=== PATIENT | female | born 1975 | race African-American/Black ===

== ENCOUNTER 2017-12-31 10:39 | Emergency (ER) | payer OTHER, MEDICAID, SELFPAY ==
[2017-12-31 11:13] VITALS: BP 127/77; PULSE 53; RESP 18; TEMP 36.3; O2SAT 100; BMI 42.7
[2017-12-31] MEDS: KETOROLAC 60 MG/2 ML VIAL 15 MG IV (12:23)
[2017-12-31 12:36] LABS: Blood Urea Nitrogen 12 mg/dL (7-17); Calcium 9.6 mg/dL (8.4-10.2); Carbon Dioxide 28 mmol/L (22-32); Chloride 107 mmol/L (98-107); Estimated Glomerular Filt Rate > 60.0 mL/min (>60); Glucose 96 mg/dL (70-100); HEMOLYSIS 17 (0-50); Potassium 4.3 mmol/L (3.4-5.1); Sodium 142 mmol/L (137-145)
[2017-12-31 12:37] LABS: Add Manual Diff / Slide Review NO; Basophils Percent Auto 0.4 % (0-2); Eosinophils Percent Auto 1.3 % (2-4); Hematocrit 38.9 % (36-46); Hemoglobin 12.7 g/dL (12.0-16.0); Lymphocytes Percent Auto 16.9 % (25-40); Mean Corpuscular HGB Conc 32.7 % (30-36); Mean Corpuscular Hemoglobin 24.1 PG (26-34); Mean Corpuscular Volume 73.7 fL (80-100); Monocytes Percent Auto 7.5 % (3-14); Neutrophils Absolute Auto 4500 /uL (3000-5900); Neutrophils Percent Auto 73.9 % (50-75); Platelet Count 298 X10^3/uL (150-400); Red Blood Cell Count 5.28 X10^6/uL (4.0-5.2); Red Cell Distribution Width 18.7 % (11.6-14.8); White Blood Cell Count 6.1 X10^3/uL (4.5-11.0)
--- NOTE | 2017-12-31 13:52 | PC.NURSE ---
Iv positional for iv contrast. Had to redress iv site. radiology barely able to push contrast
--- NOTE | 2017-12-31 14:01 | DI.CT.S_ITS ---
PROCEDURE: CT SOFT TISSUE NECK W CON INDICATIONS: mid neck pain with significant difficulty swallowing - RPA? TECHNIQUE: After the administration of intravenous contrast, 3.0 mm axial sections acquired from the sella to the aortic arch. Additional oblique axial 3.0 mm sections acquired through the pharynx. 3 mm thick coronal and sagittal reformats were generated. For radiation dose reduction, the following was used: automated exposure control. COMPARISON: None. FINDINGS: Image quality: Excellent. Lymph nodes: Bilateral level II lymph nodes mildly enlarged measuring 1.1 cm short axis on the left and 1.0 cm on the right, nonspecific. Vessels: Visualized vasculature appears patent. Incidentally noted medial deviation of the carotid vasculature. Neck spaces: The oropharynx, nasopharynx, and pharynx demonstrate no mucosal lesions. The vocal cords, false vocal cords, pyriform sinuses, epiglottis, vallecula, and tongue base all appear normal. Extramucosal spaces appear unremarkable. No abscess is seen. Glands: The parotid and submandibular glands appear normal. Thyroid gland unremarkable. Miscellaneous: Visualized brain and orbits appear normal. Lung apices appear clear. Superficial soft tissues appear normal. Bones: No suspicious bony lesions. Mild fluid seen within the left maxillary sinus. IMPRESSION: No discrete abscess identified. Mildly enlarged bilateral left level II lymph nodes, nonspecific finding. Please correlate clinically. Mild left maxillary sinus disease. Dictated by: Mike Mata M.D. on 12/31/2017 at 14:22 Approved by: Mike Mata M.D. on 12/31/2017 at 14:31
[2017-12-31 14:30] VITALS: BP 126/81; PULSE 52; RESP 18; O2SAT 100
--- NOTE | 2017-12-31 15:16 | ED_ITS ---
HPI - URI/Sore Throat General Chief Complaint: Upper Respiratory Symptoms Stated Complaint: THROAT IS CLOSING Time Seen by Provider: 12/31/17 11:46 History of Present Illness HPI Narrative: HPI 42-year-old obese female with history of gastric bypass surgery presents complaining of 3 days of difficulty swallowing and mid throat pain. Patient also reports mild sinus congestion, postnasal drip, and ear pressure. Patient reports that she was seen at [facility] on 12/30, diagnosed with UTI, given 2 doses of cephalexin without an outpatient script and was informed that her sore throat required no further intervention. Patient denies fevers, chills, neck stiffness, headache, changes in vision or hearing, states that she has spit up immediately after drinking for the last 3 days. No new sexual contacts. M/S/F/SocHx notable for: HTN, HLD, A. fib, asthma, sleep apnea, depression, anxiety, panic attacks, PTSD, claustrophobia, GERD, incontinence, gastric surgery, knee replacement, carpal tunnel surgery, D&C, tubal ligation, pacemaker ; remainder reviewed with patient and in chart. ROS: Negative constitutional, eye, cardiovascular, pulmonary, GI, , MSK, skin , neurologic, psychiatric, endocrine unless noted in the HPI. Exam Gen: Pleasant, non-toxic appearing, resting comfortably. HEENT: Normocephalic, atraumatic. * Ears - TMs clear bilaterally, bilateral external auditory canals without erythema, inflammation, or swelling, bilateral mastoids nontender without overlying erythema, swelling, or warmth. * Eyes - Bilateral eyes without injection, swelling, or discharge, no proptosis or periorbital erythema, swelling, warmth, or tenderness. * Mouth - Anterior oropharynx with MMM, no lesions appreciated, floor of the mouth is soft and without swelling. Posterior oropharynx with mild erythema with one or 2 approximate 3 mm diameter lesions suggestive of abscess ulcers, but without without swelling, exudate, erythema, or post-nasal drip, uvula midline. * Nose - Nares without crusting or discharge. * Neck - Neck supple without posterior or anterior cervical chain lymphadenopathy bilaterally. Gave patient water to drink, patient spit up after drinking water. Resp: Clear to auscultation bilaterally, normal work of breathing without accessory muscle usage. Card: Regular rate and rhythm with no murmurs, rubs or gallops. Extremities warm and well perfused. GI: Non-tender to palpation throughout all quadrants, no masses or organomegaly appreciated. : Deferred MSK: No visible deformities, strength and tone without visually appreciable deficit. Neuro: AO x 3, no facial asymmetry, vision and hearing WNL. Heme/Lymph: Deferred Skin: Normal color with no visible lesions (other than noted above). Psych: Mood and affect appropriate. Labs / Imaging (pertinent): CT neck: no discrete abscess identified. Mildly enlarged bilateral left level II lymph nodes, nonspecific finding. Please correlate clinically. Mild left maxillary sinus disease. WBC 6.1, HB 12.7, sodium 142, potassium 4.3. MDM Previous chart, nursing note, labs, imaging, and vitals reviewed. A: 42-year-old obese female with history of gastric bypass surgery presents complaining of 3 days of difficulty swallowing and mid throat pain. DDx: pharyngitis (HSV vs viral NOS vs GAS vs gonoccocal vs bacterial NOS)], EBV , HIV, candidiasis, sinusitis (bacterial, viral), peritonsillar cellulitis, ROUTE DELIVERY SUPERVISOR , RPA, Bang's angina, epiglottitis, esophagitis, HFM,. Evaluation: imaging without evidence of RPA, tracheitis, epiglottitis, or other acute abnormality. Exam suggestive of possible HFM or abscess ulcers on the posterior oropharynx. Overall history strongly suggestive of a URI with postnasal drip. No identifiable risk factors for esophagitis. ED Course: No clinically significant changes. Patient given ibuprofen, steroids held due to allergies. On repeat examination patient able to swallow water without significant difficulty. Disposition: discharge with PCP follow-up recommended. Impression: Pharyngitis (please reference below for remainder of encounter information) Related Data Home Medications Medication Instructions Recorded Confirmed alprazolam [Xanax] 2 mg PO PRN PRN #0 10/15/12 hydrochlorothiazide 25 mg PO QDAY #0 10/15/12 prazosin [Minipress] 8 mg PO HS #0 10/15/12 cholecalciferol (vitamin D3) 2,000 unit PO #0 11/11/16 [Vitamin D3] citalopram [Celexa] 40 mg PO QPM #0 11/11/16 magnesium oxide 400 mg PO #0 11/11/16 metoprolol tartrate 75 mg PO BID #0 11/11/16 montelukast [Singulair] 10 mg PO QDAY #0 11/11/16 warfarin [Coumadin] 6 mg PO QDAY #0 11/11/16 calcium citrate PO QDAY #0 07/14/17 cyanocobalamin (vitamin B-12) PO QDAY #0 07/14/17 [Vitamin B-12] ferrous sulfate [Iron (ferrous PO QDAY #0 07/14/17 sulfate)] multivitamin [Multiple Vitamins] tab PO TID #0 07/14/17 propafenone 150 mg PO QDAY #0 07/14/17 sulfacetamide sodium 1 drp OP #0 07/14/17 Allergies Allergy/AdvReac Type Severity Reaction Status Date / Time bee venom protein (honey bee) Allergy Unknown Verified 12/31/17 11:13 [BEE VENOM PROTEIN (HONEY BEE)] levofloxacin [From LEVAQUIN] Allergy Unknown Verified 12/31/17 11:13 meperidine [From DEMEROL] Allergy Unknown Verified 12/31/17 11:13 methylprednisolone Allergy Unknown Verified 12/31/17 11:13 [From SOLU-MEDROL] tramadol [TRAMADOL] AdvReac Intermediate itchy rash Verified 12/31/17 11:13 hydrocodone [HYDROCODONE] AdvReac Unknown ITCHING Verified 12/31/17 11:13 Exam Initial Vital Signs Initial Vital Signs: Vital Signs Temperature 97.3 F L 12/31/17 11:13 Pulse Rate 53 L 12/31/17 11:13 Respiratory Rate 18 12/31/17 11:13 Blood Pressure 127/77 H 12/31/17 11:13 Pulse Oximetry 100 12/31/17 11:13 Course Orders Ordered: ED Orders 12/31/17 12:20 Basic Metabolic Panel Stat Complete Blood Count AUTO DIFF Stat 12/31/17 14:01 CT soft tissue neck w con Stat Discontinued Medications Ketorolac Tromethamine (Toradol) 15 mg IV NOW ONE Stop: 12/31/17 12:05 Last Admin: 12/31/17 12:23 Dose: 15 mg Vital Signs - 8 hr 12/31/17 11:13 12/31/17 14:30 Temperature 97.3 F L Pulse Rate 53 L 52 L Respiratory Rate 18 18 Blood Pressure 127/77 H Blood Pressure [Right Arm] 126/81 H Pulse Oximetry 100 100 MDM - URI/Sore Throat Lab Data Result diagrams: 12/31/17 12:20 12/31/17 12:20 Lab Results 12/31/17 12/31/17 Range/Units 12:20 12:20 WBC 6.1 (4.5-11.0) X10^3/uL RBC 5.28 H (4.0-5.2) X10^6/uL Hgb 12.7 (12.0-16.0) g/dL Hct 38.9 (36-46) % MCV 73.7 L (80-100) fL MCH 24.1 L (26-34) PG MCHC 32.7 (30-36) % RDW 18.7 H (11.6-14.8) % Plt Count 298 (150-400) X10^3/uL Neut % (Auto) 73.9 (50-75) % Lymph % (Auto) 16.9 L (25-40) % Centre % (Auto) 7.5 (3-14) % Eos % (Auto) 1.3 L (2-4) % Baso % (Auto) 0.4 (0-2) % Neut # (Auto) 4500 (2149-1466) /uL Sodium 142 (137-145) mmol/L Potassium 4.3 (3.4-5.1) mmol/L Chloride 107 (98-107) mmol/L Carbon Dioxide 28 (22-32) mmol/L BUN 12 (7-17) mg/dL Creatinine 0.60 (0.52-1.04) mg/dL Estimated GFR > 60.0 (>60) mL/min BUN/Creatinine Ratio 20.0 (6-22) Glucose 96 (70-100) mg/dL Calcium 9.6 (8.4-10.2) mg/dL Discharge Plan Departure Prescriptions: No Action alprazolam [Xanax] 2 MG tablet 2 mg PO PRN PRNQty: 0 RF: 0 prazosin [Minipress] 1 MG capsule 8 mg PO HS Qty: 0 RF: 0 hydrochlorothiazide 25 MG tablet 25 mg PO QDAY Qty: 0 RF: 0 citalopram [Celexa] 40 MG tablet 40 mg PO QPM Qty: 0 RF: 0 metoprolol tartrate 75 MG tablet 75 mg PO BID Qty: 0 RF: 0 montelukast [Singulair] 10 MG tablet 10 mg PO QDAY Qty: 0 RF: 0 cholecalciferol (vitamin D3) [Vitamin D3] 2,000 UNIT capsule 2,000 unit PO Qty: 0 RF: 0 magnesium oxide 400 MG capsule 400 mg PO Qty: 0 RF: 0 warfarin [Coumadin] 6 MG tablet 6 mg PO QDAY Qty: 0 RF: 0 propafenone 150 MG tablet 150 mg PO QDAY Qty: 0 RF: 0 multivitamin [Multiple Vitamins] 1 EACH tablet PO TID Qty: 0 RF: 0 ferrous sulfate [Iron (ferrous sulfate)] 325 mg (65 mg iron) Tablet PO QDAY Qty: 0 RF: 0 calcium citrate 250 mg calcium Tablet PO QDAY Qty: 0 RF: 0 cyanocobalamin (vitamin B-12) [Vitamin B-12] 500 mcg Tablet PO QDAY Qty: 0 RF: 0 sulfacetamide sodium 10 % drops 1 drp OP Qty: 0 RF: 0
[2017-12-31 15:44] VITALS: BP 127/99; PULSE 57; RESP 14; O2SAT 100
== END 2017-12-31 15:46 | disposition home or self-care (01) ==
PROVIDERS: Emergency Provider Emergency Medicine; Family Provider Family Medicine; PCP Family Medicine
DX: J02.9 Acute pharyngitis, unspecified (principal)
CPT/HCPCS: 36591; 70491; 80048; 85025; 87880; 96374; 99282; 99285; J1885; Q9967

== ENCOUNTER 2018-08-08 15:35 | Emergency (ER) | payer OTHER, MEDICAID, SELFPAY ==
[2018-08-08 15:40] VITALS: BP 129/82; PULSE 64; RESP 18; TEMP 36.7; O2SAT 99
--- NOTE | 2018-08-08 15:45 | DI.RAD.S_ITS ---
PROCEDURE: XR KNEE RT 3V INDICATIONS: rt knee pain, heard a pop after fall last night TECHNIQUE: 3 views of the knee were acquired. COMPARISON: [facility], , KNEE 3V RIGHT, 11/11/2016, 14:05. FINDINGS: Bones: Post surgical changes are present related to a previous total right knee arthroplasty. The metallic prosthetic components are appropriately seated without evidence to suggest periprosthetic fracture or lucency. No displaced fractures or dislocations are evident. No suspicious osseous lesions are present. Soft tissues: There is a small to moderate-sized joint effusion. No suspicious soft tissue calcifications. IMPRESSION: 1. Unremarkable right knee, status post TKA. No fractures. 2. Moderate knee joint effusion. Dictated by: Guevara Caldera M.D. on 08/08/2018 at 15:20 Approved by: Guevara Caldera M.D. on 08/08/2018 at 15:21
[2018-08-08 18:07] LABS: INR 1.8 (0.9-1.3); Prothrombin Time 21.2 SECONDS (10.1-12.7)
--- NOTE | 2018-08-08 18:12 | ED.LOWEXIN ---
HPI - Extremity Injury (Lower) General Chief Complaint: Extremity Injury, Lower Stated Complaint: RIGHT LEG SOMETHING POP/PAIN Time Seen by Provider: 08/08/18 18:12 Source: patient and family Mode of arrival: ambulatory Limitations: no limitations History of Present Illness HPI Narrative: 43-year-old female former smoker with extensive right knee pain and multiple orthopedic surgeries as well as cardiac history presents with a chief complaint of severe right knee pain after mechanical fall a few days ago. She was walking on the stairs and slipped and felt pain in her knee. She admits to some mild swelling but increased pain. She denies numbness, tingling or weakness. She denies any head neck or back pain. Her pain is worse with ambulation and improves with rest. She continues to wear the hinged brace provided postoperatively 7 weeks ago complaint: knee injury Onset (ago): minute(s) Type of Injury: hyperextension Place: home Severity: moderate Relieving factors: nothing Exacerbating factors: nothing Context: fall and walking Associated symptoms: snap/pop sensation and swelling Other symptoms: none Related Data Home Medications Medication Instructions Recorded Confirmed alprazolam [Xanax] 2 mg PO PRN PRN #0 10/15/12 hydrochlorothiazide 25 mg PO QDAY #0 10/15/12 prazosin [Minipress] 8 mg PO HS #0 10/15/12 cholecalciferol (vitamin D3) 2,000 unit PO #0 11/11/16 [Vitamin D3] citalopram [Celexa] 40 mg PO QPM #0 11/11/16 magnesium oxide 400 mg PO #0 11/11/16 metoprolol tartrate 75 mg PO BID #0 11/11/16 montelukast [Singulair] 10 mg PO QDAY #0 11/11/16 warfarin [Coumadin] 6 mg PO QDAY #0 11/11/16 calcium citrate PO QDAY #0 07/14/17 cyanocobalamin (vitamin B-12) PO QDAY #0 07/14/17 [Vitamin B-12] ferrous sulfate [Iron (ferrous PO QDAY #0 07/14/17 sulfate)] multivitamin [Multiple Vitamins] tab PO TID #0 07/14/17 propafenone 150 mg PO QDAY #0 07/14/17 sulfacetamide sodium 1 drp OP #0 07/14/17 Previous Rx's Medication Instructions Recorded oxycodone 5 mg PO Q4-6H PRN #10 tab 08/08/18 Allergies Allergy/AdvReac Type Severity Reaction Status Date / Time bee venom protein (honey bee) Allergy Unknown Verified 12/31/17 11:13 [BEE VENOM PROTEIN (HONEY BEE)] levofloxacin [From LEVAQUIN] Allergy Unknown Verified 12/31/17 11:13 meperidine [From DEMEROL] Allergy Unknown Verified 12/31/17 11:13 methylprednisolone Allergy Unknown Verified 12/31/17 11:13 [From SOLU-MEDROL] tramadol [TRAMADOL] AdvReac Intermediate itchy rash Verified 12/31/17 11:13 hydrocodone [HYDROCODONE] AdvReac Unknown ITCHING Verified 12/31/17 11:13 Review of Systems Constitutional Denies chills, Denies fever(s), Denies lethargy and Denies weakness Eyes Denies change in vision, Denies eye discharge, Denies irritation and Denies loss of vision ENT Ears, Nose, Mouth, and Throat: Denies change in voice, Denies neck pain and Denies sore throat Cardiovascular Denies chest pain, Denies irregular heart rhythm, Denies lightheadedness, Denies palpitations, Denies dyspnea, Denies dyspnea on exertion and Denies orthopnea Respiratory Denies cough, Denies dyspnea, Denies dyspnea on exertion and Denies wheezing Gastrointestinal Gastrointestinal: Denies abdominal pain, Denies change in bowel habits, Denies diarrhea, Denies nausea and Denies vomiting Genitourinary Denies hematuria, Denies flank pain, Denies urinary incontinence and Denies urinary urgency Musculoskeletal Reports joint swelling, Reports limited range of motion and Denies neck pain Integumentary/Breasts Denies pruritus, Denies erythema, Denies rash and Denies wounds Neurologic Denies confusion, Denies loss of vision and Denies weakness Psychiatric Denies anxiety, Denies confusion, Denies depression, Denies homicidal ideation and Denies suicidal ideation Endocrine Denies palpitations Hematologic/Lymphatic Denies easy bruising Allergic/Immunologic Denies wheezing Exam Narrative Exam Narrative: GEN: 43-year-old female resting comfortably AOx3 and in mild distress EYES: Pupils are equal, round, and reactive to light and accommodation. Extraoccular muscles are intact bilaterally. There is no subconjunctival hemorrhage or exudate. CHEST: Lungs are clear to auscultation bilaterally and free of wheezes, rales, or rhonchi. Heart rate is regular rhythm, there are no murmurs, clicks, rubs, or gallops. There is no chest wall tenderness. ABD: Abdomen is soft and nontender. There is no guarding or rebound. Bowel sounds are normal in all 4 quadrants. There is no mass or organomegaly. EXT: Full painless ROM of all extremities with no loss of sensation or strength. SKIN: Warm, pink, and dry. No erythema or rash Initial Vital Signs Initial Vital Signs: Vital Signs Temperature 98.0 F 08/08/18 15:40 Pulse Rate 64 08/08/18 15:40 Respiratory Rate 18 08/08/18 15:40 Blood Pressure 129/82 08/08/18 15:40 Pulse Oximetry 99 08/08/18 15:40 Course Orders Ordered: ED Orders 08/08/18 15:45 XR knee RT 3V Stat 08/08/18 17:55 Prothrombin Time INR Stat Vital Signs - 8 hr 08/08/18 15:40 Temperature 98.0 F Pulse Rate 64 Respiratory Rate 18 Blood Pressure 129/82 Pulse Oximetry 99 MDM - Extremity Injury (Lower) Lab Data Lab Results 08/08/18 Range/Units 17:55 PT 21.2 H (10.1-12.7) SECONDS INR 1.8 H (0.9-1.3) Imaging Data knee xray: Radiologist's impression: [address] [address] XRay Report Signed Patient: Robyn Gabriel#: [id number] : 1975Acct:[id number] Age/Sex: 43 / FDate of Service: 08/08/18 Loc: ED Accession Number: [id number] Procedure: XR knee RT 3V Ordering Provider: Mercy Cee P.A-C PROCEDURE: XR KNEE RT 3V INDICATIONS: rt knee pain, heard a pop after fall last night TECHNIQUE: 3 views of the knee were acquired. COMPARISON: [facility], , KNEE 3V RIGHT, 11/11/2016, 14:05. FINDINGS: Bones: Post surgical changes are present related to a previous total right knee arthroplasty. The metallic prosthetic components are appropriately seated without evidence to suggest periprosthetic fracture or lucency. No displaced fractures or dislocations are evident. No suspicious osseous lesions are present. Soft tissues: There is a small to moderate-sized joint effusion. No suspicious soft tissue calcifications. IMPRESSION: 1. Unremarkable right knee, status post TKA. No fractures. 2. Moderate knee joint effusion. Dictated by: Guevara Caldera M.D. on 08/08/2018 at 15:20 Approved by: Guevara Caldera M.D. on 08/08/2018 at 15:21 Discharge Plan Departure Patient Disposition: Home Clinical Impression: Right knee pain Qualifiers: Chronicity: acute Qualified Code(s): M25.561 - Pain in right knee Discharge Date/Time: 08/08/18 18:50 Interventions: ED Discharge Assessment Last Done: 08/08/18 18:48 Instructions: DI for Knee Sprain Activity Restrictions/Additional Instructions: You have been prescribed narcotic medications. While on these medications you cannot drive or operate heavy machinery. Additionally you cannot sign legal documents or perform any duties such as this. 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 Please understand that we cannot provide further refills of narcotics or controlled substances through the ED and your pain management will need to be through your Primary Care Provider Prescriptions: New oxycodone 5 mg tablet 5 mg PO Q4-6H PRN (Reason: pain) Qty: 10 RF: 0 No Action alprazolam [Xanax] 2 MG tablet 2 mg PO PRN PRNQty: 0 RF: 0 prazosin [Minipress] 1 MG capsule 8 mg PO HS Qty: 0 RF: 0 hydrochlorothiazide 25 MG tablet 25 mg PO QDAY Qty: 0 RF: 0 citalopram [Celexa] 40 MG tablet 40 mg PO QPM Qty: 0 RF: 0 metoprolol tartrate 75 MG tablet 75 mg PO BID Qty: 0 RF: 0 montelukast [Singulair] 10 MG tablet 10 mg PO QDAY Qty: 0 RF: 0 cholecalciferol (vitamin D3) [Vitamin D3] 2,000 UNIT capsule 2,000 unit PO Qty: 0 RF: 0 magnesium oxide 400 MG capsule 400 mg PO Qty: 0 RF: 0 warfarin [Coumadin] 6 MG tablet 6 mg PO QDAY Qty: 0 RF: 0 propafenone 150 MG tablet 150 mg PO QDAY Qty: 0 RF: 0 multivitamin [Multiple Vitamins] 1 EACH tablet PO TID Qty: 0 RF: 0 ferrous sulfate [Iron (ferrous sulfate)] 325 mg (65 mg iron) tablet PO QDAY Qty: 0 RF: 0 calcium citrate 250 mg calcium tablet PO QDAY Qty: 0 RF: 0 cyanocobalamin (vitamin B-12) [Vitamin B-12] 500 mcg tablet PO QDAY Qty: 0 RF: 0 sulfacetamide sodium 10 % drops 1 drp OP Qty: 0 RF: 0 Referrals: Juancarlos Benoit MD [Primary Care Provider] -
[2018-08-08 18:48] VITALS: BP 140/86; PULSE 67; TEMP 36.7; O2SAT 100
== END 2018-08-08 18:50 | disposition home or self-care (01) ==
PROVIDERS: Emergency Medicine; Emergency Provider Emergency Medicine; Family Provider Family Medicine; PCP Family Medicine
DX: M25.561 Pain in right knee (principal); W01.0XXA Fall on same level from slipping, tripping and stumbling without subsequent striking against object, initial encounter
CPT/HCPCS: 36415; 73562; 85610; 99282; 99284